=== PATIENT | female | born 1945 | race Caucasian/White ===

== ENCOUNTER → 2021-10-29 08:27 | Outpatient (CLI) | payer MEDICARE, SELFPAY ==
--- NOTE | 2021-10-29 | DI.MRI.S_ITS ---
PROCEDURE: MR BRAIN (IAC) WWO CON INDICATIONS: Sensorineural hearing loss, bilateral TECHNIQUE: Noncontrast sagittal T1 spin echo, axial FLAIR, axial gradient echo, axial diffusion and ADC through the brain. Axial thin-slice 3D CISS, coronal TruFISP, axial T1 spin echo with fat saturation through the internal auditory canals. After the administration of contrast, thin slice axial and coronal T1 spin echo with fat saturation through the internal auditory canals, and axial T1 spin echo with fat saturation through the brain. COMPARISON: None. FINDINGS: Image quality: Excellent. Cerebellopontine angles: No cerebellopontine angle masses. Inner ear structures appear normally formed. No suspicious enhancement in the internal auditory canal or along the course of the 7th cranial nerve. CSF spaces: Ventricles are normal in size and shape. No extra-axial fluid collections. Basal cisterns are patent. Brain: No intracranial bleeds or mass effects. Atrophy and mild multifocal chronic ischemic change. Patel-white matter interface is intact. No abnormal intracranial enhancement. Diffusion weighted images demonstrate no acute ischemic insults. Brainstem appears normal. Normal intravascular flow voids are present. Skull and face: Calvarial marrow signal is normal. Orbits appear normal. Sinuses: Right maxillary sinus mucosal thickening and air-fluid level IMPRESSION: 1. Unremarkable MRI internal auditory canals with without contrast. No evidence of acoustic schwannoma. 2. Left maxillary mucosal sinus disease with air-fluid level Approved by: Jimmy العلي M.D. on 10/29/2021 at 11:42
== END ==
PROVIDERS: Family Provider Physician Assistant; PCP Physician Assistant; Referring Provider Otolaryngology; Visit Provider Otolaryngology
DX: H90.3 Sensorineural hearing loss, bilateral (principal); J32.0 Chronic maxillary sinusitis
CPT/HCPCS: 70553; A9579